=== PATIENT | female | born 1995 | race Caucasian/White ===

== ENCOUNTER 2021-01-06 09:42 | Emergency (ER) | payer BC ==
[~2021-01-06] VITALS: Ht 167.6 cm; Wt 63.5 kg
--- NOTE | 2021-01-06 10:17 | NUR ---
PT WAS EVALUATED BY DR WORTHY. PT WAS D/C'd TO HOME. D/C INSTRUCTIONS GIVEN TO THE PT BY DR WORTHY.
[2021-01-06 10:18] VITALS: BP 126/70
== END 2021-01-06 10:46 | disposition home or self-care (01) ==
LOC: ER 09:42
DX: L25.9 Unspecified contact dermatitis, unspecified cause (principal)
CPT/HCPCS: A4663